=== PATIENT | female | born 1950 | race Caucasian/White ===

== ENCOUNTER 2017-04-09 06:09 | Inpatient (IN) | payer MEDICARE, OTHER ==
[~2017-04-09] VITALS: Ht 157.5 cm; Wt 61.7 kg
[2017-04-09 07:14] LABS: HEMOGLOBIN 13.3 gm/dl (12.3-15.3); RED BLOOD COUNT 4.28 M/UL (4.00-5.10); WHITE BLOOD COUNT 14.9 K/UL (4.5-11.0)
[2017-04-09] MEDS ORDERED: ZOCOR20 MG PO (12:31)
[2017-04-09] MEDS ORDERED: ZANAFLEX 4 MG TA4 MG PO (12:31)
[2017-04-09] MEDS ORDERED: PROZAC 20 MG CA20 MG PO (12:33)
[2017-04-09] MEDS ORDERED: KLONOPIN1 MG PO (12:33)
[2017-04-09] MEDS ORDERED: NEURONTIN 300300 MG PO (12:34)
[2017-04-09] MEDS ORDERED: NEURONTIN 400400 MG PO (12:34)
[2017-04-09] MEDS ORDERED: LORTAB 5-325 M1 EACH PO (12:35)
[2017-04-09] MEDS ORDERED: SYNTHROID75 MCG PO (12:36)
[2017-04-09] MEDS ORDERED: ZESTRIL10 MG PO (12:52)
[2017-04-09] MEDS ORDERED: LOPRESSOR50 MG PO (12:52)
[2017-04-09] MEDS ORDERED: OMEPRAZOLE20 M1 PO (12:55)
[2017-04-09] MEDS ORDERED: NYSTATIN15 GM TOP (12:57)
[2017-04-09 13:35] LABS: RED BLOOD COUNT 4.21 M/UL (4.00-5.10); WHITE BLOOD COUNT 17.4 K/UL (4.5-11.0)
[2017-04-09 21:45] LABS: HEMOGLOBIN 12.4 gm/dl (12.3-15.3)
[2017-04-10 05:16] LABS: HEMOGLOBIN 11.6 gm/dl (12.3-15.3); WHITE BLOOD COUNT 13.3 K/UL (4.5-11.0)
[2017-04-10 05:21] LABS: RED BLOOD COUNT 3.77 M/UL (4.00-5.10)
[2017-04-10 14:02] LABS: HEMOGLOBIN 11.6 gm/dl (12.3-15.3)
[2017-04-10 21:25] LABS: HEMOGLOBIN 10.6 gm/dl (12.3-15.3)
[2017-04-11 05:20] LABS: HEMOGLOBIN 10.1 gm/dl (12.3-15.3)
[2017-04-11 05:21] LABS: RED BLOOD COUNT 3.29 M/UL (4.00-5.10); WHITE BLOOD COUNT 9.8 K/UL (4.5-11.0)
[2017-04-11 05:40] LABS: BUN/CREATININE RATIO 14 (0-10)
[2017-04-12 04:25] LABS: HEMOGLOBIN 9.2 gm/dl (12.3-15.3); RED BLOOD COUNT 2.99 M/UL (4.00-5.10); WHITE BLOOD COUNT 7.7 K/UL (4.5-11.0)
[2017-04-12 04:58] LABS: BUN/CREATININE RATIO 16 (0-10)
[2017-04-13 05:36] LABS: WHITE BLOOD COUNT 8.5 K/UL (4.5-11.0)
[2017-04-13 05:37] LABS: RED BLOOD COUNT 3.29 M/UL (4.00-5.10)
[2017-04-14 05:02] LABS: HEMOGLOBIN 9.8 gm/dl (12.3-15.3); RED BLOOD COUNT 3.23 M/UL (4.00-5.10); WHITE BLOOD COUNT 7.4 K/UL (4.5-11.0)
[2017-04-14] MEDS ORDERED: TYLENOL325 MG PO (12:29)
[2017-04-14] MEDS ORDERED: FLAGYL500 MG PO (12:30)
[2017-05-20] MEDS ORDERED: OMEPRAZOLE20 M1 PO (10:02)
[2017-05-20] MEDS ORDERED: CLONAZEPAM1 MG PO (10:03)
[2017-05-20] MEDS ORDERED: NEURONTIN 400400 MG PO (10:03)
[2017-05-20] MEDS ORDERED: NYSTATIN100000 UNI PO (10:04)
[2017-05-20] MEDS ORDERED: METOPROLOL TART50 MG PO (10:04)
[2017-05-20] MEDS ORDERED: LISINOPRIL10 MG PO (10:04)
[2017-05-20] MEDS ORDERED: LEVOTHYROXINE75 MCG PO (10:05)
[2017-05-20] MEDS ORDERED: SIMVASTATIN20 MG PO (10:05)
[2017-05-20] MEDS ORDERED: TIZANIDINE HCL4 MG PO (10:06)
[2017-05-20] MEDS ORDERED: FLUOXETINE HCL60 MG PO (10:07)
[2017-05-20] MEDS ORDERED: SUMATRIPTAN SU100 MG PO (10:07)
[2017-05-20] MEDS ORDERED: NEURONTIN 300300 MG PO (10:08)
[2017-05-20] MEDS ORDERED: NORCO 10-325 T1 EACH PO (10:08)
[2017-05-20] MEDS ORDERED: NYSTATIN15 GM TP (10:09)
== END 2017-04-14 14:44 | disposition home or self-care (01) | DRG 391 ==
LOC: ER1 06:09 → M/S 09:46 → ZEROF 09:46 → PROG CARE 09:46 → M/S 04-10 15:10
PROVIDERS: Emergency Medicine; Internal Medicine; ADMIT Family Medicine
DX: A09 Infectious gastroenteritis and colitis, unspecified (principal); K55.059 Acute (reversible) ischemia of intestine, part and extent unspecified; N17.9 Acute kidney failure, unspecified; J98.11 Atelectasis; B96.20 Unspecified Escherichia coli [E. coli] as the cause of diseases classified elsewhere; M19.90 Unspecified osteoarthritis, unspecified site; I34.1 Nonrheumatic mitral (valve) prolapse; Z86.73 Personal history of transient ischemic attack (TIA), and cerebral infarction without residual deficits; F32.9 Major depressive disorder, single episode, unspecified; M51.36 Other intervertebral disc degeneration, lumbar region; G89.29 Other chronic pain; E03.9 Hypothyroidism, unspecified; I10 Essential (primary) hypertension; K21.9 Gastro-esophageal reflux disease without esophagitis; M81.0 Age-related osteoporosis without current pathological fracture; G43.909 Migraine, unspecified, not intractable, without status migrainosus; F41.9 Anxiety disorder, unspecified; Z90.710 Acquired absence of both cervix and uterus; Z98.890 Other specified postprocedural states; F17.210 Nicotine dependence, cigarettes, uncomplicated; Z82.49 Family history of ischemic heart disease and other diseases of the circulatory system; Z83.49 Family history of other endocrine, nutritional and metabolic diseases; Z79.899 Other long term (current) drug therapy; Z79.82 Long term (current) use of aspirin; R10.9 Unspecified abdominal pain; D72.829 Elevated white blood cell count, unspecified
CPT/HCPCS: 36415; 70450; 71010; 72070; 72100; 72125; 80048; 80053; 82550; 82553; 83605; 83690; 83874; 84484; 85014; 85018; 85025; 85027; 85610; 85730; 86850; 86900; 86901; 87040; 87045; 87046; 89055; 93005; 94640; 94664; 96361; 96365; 96375; 96376; 97116; 99285; C9113; J1335; J1885; J2270; J2405; J7030; J7050; Q9965

== ENCOUNTER → 2017-05-20 | Day surgery (SDC) | payer MEDICARE, OTHER ==
[~2017-05-20] VITALS: Ht 157.5 cm; Wt 61.7 kg
[~2017-05-20] MED LIST: CLONAZEPAM1 MG PO; FLAGYL500 MG PO; FLUOXETINE HCL60 MG PO; KLONOPIN1 MG PO; LEVOTHYROXINE75 MCG PO; LISINOPRIL10 MG PO; LOPRESSOR50 MG PO; LORTAB 5-325 M1 EACH PO; METOPROLOL TART50 MG PO; NEURONTIN 300300 MG PO; NEURONTIN 400400 MG PO; NORCO 10-325 T1 EACH PO; NYSTATIN100000 UNI PO; NYSTATIN15 GM TOP; NYSTATIN15 GM TP; OMEPRAZOLE20 M1 PO; PROZAC 20 MG CA20 MG PO; SIMVASTATIN20 MG PO; SUMATRIPTAN SU100 MG PO; SYNTHROID75 MCG PO; TIZANIDINE HCL4 MG PO; TYLENOL325 MG PO; ZANAFLEX 4 MG TA4 MG PO; ZESTRIL10 MG PO; ZOCOR20 MG PO
== END | disposition home or self-care (01) ==
LOC: OR 08:01
PROVIDERS: Internal Medicine Gastroenterology
PROC: 0DBE8ZX Excision of Large Intestine, Via Natural or Artificial Opening Endoscopic, Diagnostic (ICD-10-PCS; principal; 2017-05-20 12:30)
DX: Z12.11 Encounter for screening for malignant neoplasm of colon (principal); K57.30 Diverticulosis of large intestine without perforation or abscess without bleeding; K64.0 First degree hemorrhoids; I10 Essential (primary) hypertension; E89.0 Postprocedural hypothyroidism; E66.3 Overweight; M19.90 Unspecified osteoarthritis, unspecified site; G89.29 Other chronic pain; F17.210 Nicotine dependence, cigarettes, uncomplicated; Z87.19 Personal history of other diseases of the digestive system; Z88.2 Allergy status to sulfonamides; Z79.891 Long term (current) use of opiate analgesic; Z79.899 Other long term (current) drug therapy; Z90.49 Acquired absence of other specified parts of digestive tract; Z90.710 Acquired absence of both cervix and uterus
CPT/HCPCS: J7030

== ENCOUNTER 2022-02-26 12:50 | Emergency (ER) | payer MEDICARE, OTHER ==
[2022-02-26 13:34] LABS: HEMOGLOBIN 9.6 gm/dl (12.3-15.3); RED BLOOD COUNT 3.28 M/UL (4.00-5.10); WHITE BLOOD COUNT 10.9 K/UL (4.5-11.0)
[2022-02-26 14:29] LABS: BUN/CREATININE RATIO 18 (0-10)
[2022-02-26 19:18] LABS: HEMOGLOBIN 10.2 gm/dl (12.3-15.3)
[2022-02-26 23:27] LABS: HEMOGLOBIN 8.3 gm/dl (12.3-15.3)
== END 2022-02-26 23:30 | disposition short-term general hospital (02) ==
LOC: ER1 12:50
PROVIDERS: Emergency Medicine
DX: S09.90XA Unspecified injury of head, initial encounter (principal); S20.224A Contusion of middle back wall of thorax, initial encounter; S10.93XA Contusion of unspecified part of neck, initial encounter; Z20.822 Contact with and (suspected) exposure to COVID-19; D64.9 Anemia, unspecified; K92.2 Gastrointestinal hemorrhage, unspecified; I10 Essential (primary) hypertension; E78.5 Hyperlipidemia, unspecified; W20.8XXA Other cause of strike by thrown, projected or falling object, initial encounter
CPT/HCPCS: 70450; 71045; 72125; 72128; 72131; 80053; 81001; 82272; 82550; 82553; 83605; 84484; 85014; 85018; 85025; 85610; 85730; 86850; 86900; 86901; 93005; 96374; 96375; 99285; C9113; J2354; U0002

== ENCOUNTER 2022-03-11 21:29 | Inpatient (IN) | payer MEDICARE, OTHER ==
[~2022-03-11] VITALS: Ht 157.5 cm; Wt 45.4 kg
[~2022-03-11 21:29] MED LIST changes: +GABAPENTIN400 MG PO; -LEVOTHYROXINE75 MCG PO; -SIMVASTATIN20 MG PO; -TIZANIDINE HCL4 MG PO
[2022-03-11 22:16] LABS: HEMOGLOBIN 10.2 gm/dl (12.3-15.3); RED BLOOD COUNT 3.48 M/UL (4.00-5.10)
[2022-03-12] MEDS ORDERED: LEVOTHYROXINE75 MC1 PO (02:36)
[2022-03-12] MEDS ORDERED: PROZAC 20 MG CA20 MG PO (02:36)
[2022-03-12] MEDS ORDERED: DOXYCYCLINE MO100 MG PO (02:37)
[2022-03-12] MEDS ORDERED: OMNICEF 300 MG300 MG PO (02:37)
[2022-03-12] MEDS ORDERED: ZOCOR20 MG PO (02:37)
[2022-03-12] MEDS ORDERED: ALBUTEROL1.25 MG/3 INH (02:38)
[2022-03-12] MEDS ORDERED: ATROVENT HFA12.9 GM INH (02:39)
[2022-03-12] MEDS ORDERED: LIPITOR20 MG PO (02:40)
[2022-03-12] MEDS ORDERED: TOPROL XL 25 MG25 MG PO (02:40)
[2022-03-12] MEDS ORDERED: BUMETANIDE0.5 MG PO (02:41)
[2022-03-12] MEDS ORDERED: ASPIRIN EC81 MG PO (02:41)
[2022-03-12] MEDS ORDERED: CHRONULAC20 GM/30 M PO (02:42)
[2022-03-12] MEDS ORDERED: ZOFRAN ODT 4 MG4 MG PO (02:43)
[2022-03-12] MEDS ORDERED: 8 HOUR PAIN RE650 MG PO (02:44)
[2022-03-12] MEDS ORDERED: LISINOPRIL2.5 MG PO (02:44)
[2022-03-12] MEDS ORDERED: XIFAXAN 550 MG550 MG PO (02:44)
[2022-03-12] MEDS ORDERED: MECLIZINE HCL25 MG PO (02:45)
[2022-03-12] MEDS ORDERED: PROTONIX20 MG PO (10:02)
[2022-03-12] MEDS ORDERED: SIMVASTATIN20 MG PO (10:05)
[2022-03-12] MEDS ORDERED: LEVOTHYROXINE75 MCG PO (10:05)
[2022-03-12] MEDS ORDERED: PROAIR HFA8.5 GM INH (19:03)
[2022-03-12] MEDS ORDERED: IPRATROPIU0.2 MG/1 M INH (19:06)
[2022-03-12] MEDS ORDERED: TIZANIDINE HCL4 MG PO (19:24)
[2022-03-13 01:21] LABS: ESCHERICHIA COLI Not Detected (Negative); KLEBSIELLA OXYTOCA Not Detected (Negative); KLEBSIELLA PNEUMONIAE Not Detected (Negative); KPC-CARBAPENEM-RESISTANCE GENE Not Detected (Negative); STAPHYLOCOCCUS AUREUS Not Detected (Negative); STREP AGALACTIAE (GROUP B) Not Detected (Negative); STREP PYOGENES (GROUP A) Not Detected (Negative); STREPTOCOCCUS Not Detected (Negative); vanA/B (VANCOMYCIN RESIST GENE Not Detected (Negative)
[2022-03-13 01:22] LABS: CANDIDA ALBICANS Not Detected (Negative); CANDIDA KRUSEI Not Detected (Negative); CANDIDA TROPICALIS Not Detected (Negative); HAEMOPHILUS INFLUENZAE Not Detected (Negative); PROTEUS Not Detected (Negative); PSEUDOMONAS AERUGINOSA Not Detected (Negative); SERRATIA MARCESANS Not Detected (Negative)
[2022-03-13 02:48] LABS: STAPHYLOCOCCUS DETECTED (Negative)
[2022-03-13 06:19] LABS: HEMOGLOBIN 9.3 gm/dl (12.3-15.3); RED BLOOD COUNT 3.3 M/UL (4.00-5.10)
[2022-03-13 06:20] LABS: WHITE BLOOD COUNT 22.7 K/UL (4.5-11.0)
[2022-03-13 10:16] LABS: HBSAG SCREEN Negative (Negative); HEP A AB, IGM Negative (Negative); HEP B CORE AB, IGM Negative (Negative); HEP C VIRUS AB 0.2 (0.0-0.9)
[2022-03-14 04:05] LABS: HEMOGLOBIN 9.2 gm/dl (12.3-15.3); RED BLOOD COUNT 3.15 M/UL (4.00-5.10); WHITE BLOOD COUNT 19.6 K/UL (4.5-11.0)
[2022-03-15 08:50] LABS: HEMOGLOBIN 7.7 gm/dl (12.3-15.3)
--- NOTE | 2022-03-15 09:01 | NUR ---
03/15/22 0900 5 RINGS REMOVED FROM PATIENTS HANDS AND GIVEN TO SISTER
[2022-03-15 09:09] LABS: RED BLOOD COUNT 2.62 M/UL (4.00-5.10); WHITE BLOOD COUNT 11.4 K/UL (4.5-11.0)
[2022-03-16 05:13] LABS: HEMOGLOBIN 7.1 gm/dl (12.3-15.3); RED BLOOD COUNT 2.42 M/UL (4.00-5.10)
[2022-03-17 05:44] LABS: RED BLOOD COUNT 2.21 M/UL (4.00-5.10); WHITE BLOOD COUNT 12.2 K/UL (4.5-11.0)
[2022-03-17 05:47] LABS: HEMOGLOBIN 6.5 gm/dl (12.3-15.3)
[2022-03-17 16:12] LABS: ORGANISM ID Not indicated. (.); SPECIMEN SOURCE Urine (.); STREPTOCOCCUS PNEUMONIAE AG Negative (Negative)
[2022-03-18 05:46] LABS: WHITE BLOOD COUNT 12.4 K/UL (4.5-11.0)
[2022-03-18 05:51] LABS: RED BLOOD COUNT 2.69 M/UL (4.00-5.10)
[2022-03-19 05:42] LABS: HEMOGLOBIN 7.1 gm/dl (12.3-15.3); WHITE BLOOD COUNT 14.9 K/UL (4.5-11.0)
[2022-03-19 05:49] LABS: RED BLOOD COUNT 2.38 M/UL (4.00-5.10)
[2022-03-20 13:25] LABS: WHITE BLOOD COUNT 16.3 K/UL (4.5-11.0)
[2022-03-20 13:26] LABS: RED BLOOD COUNT 1.92 M/UL (4.00-5.10)
[2022-03-20 13:27] LABS: HEMOGLOBIN 5.7 gm/dl (12.3-15.3)
--- NOTE | 2022-03-20 13:42 | NUR ---
Patient has a hemoglobin of 5.7. RN spoke to patient's sister about doing a blood transfusion at this time. The sister declined due to patient's poor prognosis and the fact that the patient is being made comfort care once other family arrives. Dr. Ramos made aware of the situation and agrees with the decision.
[2022-03-21 04:51] LABS: RED BLOOD COUNT 1.84 M/UL (4.00-5.10)
[2022-03-21 04:52] LABS: WHITE BLOOD COUNT 22.2 K/UL (4.5-11.0)
[2022-03-21 04:53] LABS: HEMOGLOBIN 5.5 gm/dl (12.3-15.3)
--- NOTE | 2022-03-21 09:18 | NUR ---
Dr. EATON at bedside, patient being made comfort care
== END 2022-03-21 10:00 | disposition expired | DRG 870 ==
LOC: ER1 21:29 → CCU 03-12 00:09 → CDU 03-12 00:09 → CCU 03-12 02:15
PROVIDERS: Emergency Medicine; Internal Medicine; Internal Medicine Critical Care Medicine; Internal Medicine Infectious Disease; Internal Medicine Nephrology; ADMIT Family Medicine
PROC: 5A0935A Assistance with Respiratory Ventilation, Less than 24 Consecutive Hours, High Flow/Velocity Cannula (ICD-10-PCS; principal; 2022-03-12)
PROC: 3E03329 Introduction of Other Anti-infective into Peripheral Vein, Percutaneous Approach (ICD-10-PCS; 2022-03-12)
PROC: 3E043XZ Introduction of Vasopressor into Central Vein, Percutaneous Approach (ICD-10-PCS; 2022-03-12)
PROC: B24BZZZ Ultrasonography of Heart with Aorta (ICD-10-PCS; 2022-03-12)
PROC: 5A1955Z Respiratory Ventilation, Greater than 96 Consecutive Hours (ICD-10-PCS; 2022-03-13)
PROC: 5A09357 Assistance with Respiratory Ventilation, Less than 24 Consecutive Hours, Continuous Positive Airway Pressure (ICD-10-PCS; 2022-03-13)
PROC: 0BH17EZ Insertion of Endotracheal Airway into Trachea, Via Natural or Artificial Opening (ICD-10-PCS; 2022-03-13)
PROC: 03HY32Z Insertion of Monitoring Device into Upper Artery, Percutaneous Approach (ICD-10-PCS; 2022-03-13)
PROC: 4A133B1 Monitoring of Arterial Pressure, Peripheral, Percutaneous Approach (ICD-10-PCS; 2022-03-13)
PROC: 4A133J1 Monitoring of Arterial Pulse, Peripheral, Percutaneous Approach (ICD-10-PCS; 2022-03-13)
PROC: B34HZZZ Ultrasonography of Right Upper Extremity Arteries (ICD-10-PCS; 2022-03-13)
PROC: 02HV33Z Insertion of Infusion Device into Superior Vena Cava, Percutaneous Approach (ICD-10-PCS; 2022-03-13)
PROC: 30233N1 Transfusion of Nonautologous Red Blood Cells into Peripheral Vein, Percutaneous Approach (ICD-10-PCS; 2022-03-17)
DX: A41.9 Sepsis, unspecified organism (principal); R65.21 Severe sepsis with septic shock; J80 Acute respiratory distress syndrome; I81 Portal vein thrombosis; J18.9 Pneumonia, unspecified organism; I21.A1 Myocardial infarction type 2; G93.41 Metabolic encephalopathy; N17.0 Acute kidney failure with tubular necrosis; D68.9 Coagulation defect, unspecified; J44.0 Chronic obstructive pulmonary disease with (acute) lower respiratory infection; E87.0 Hyperosmolality and hypernatremia; R18.8 Other ascites; D61.818 Other pancytopenia; Z20.822 Contact with and (suspected) exposure to COVID-19; I48.0 Paroxysmal atrial fibrillation; K74.60 Unspecified cirrhosis of liver; Z66 Do not resuscitate; E78.5 Hyperlipidemia, unspecified; I10 Essential (primary) hypertension; E87.5 Hyperkalemia; F17.210 Nicotine dependence, cigarettes, uncomplicated; E80.6 Other disorders of bilirubin metabolism; E87.6 Hypokalemia; E03.9 Hypothyroidism, unspecified; G89.29 Other chronic pain; K75.81 Nonalcoholic steatohepatitis (NASH); N18.30 Chronic kidney disease, stage 3 unspecified; R94.31 Abnormal electrocardiogram [ECG] [EKG]; K21.9 Gastro-esophageal reflux disease without esophagitis; E66.9 Obesity, unspecified; L89.322 Pressure ulcer of left buttock, stage 2; L89.312 Pressure ulcer of right buttock, stage 2; L89.152 Pressure ulcer of sacral region, stage 2; Z51.5 Encounter for palliative care; Z82.49 Family history of ischemic heart disease and other diseases of the circulatory system; Z88.2 Allergy status to sulfonamides; Z88.8 Allergy status to other drugs, medicaments and biological substances; Z86.16 Personal history of COVID-19; Z79.82 Long term (current) use of aspirin; Z79.899 Other long term (current) drug therapy; Z68.22 Body mass index [BMI] 22.0-22.9, adult
CPT/HCPCS: ECHO; 0240U; 31500; 36415; 36430; 36600; 70450; 71045; 76700; 76705; 80048; 80053; 80074; 80202; 80307; 81001; 82140; 82533; 82550; 82553; 82570; 82803; 83036; 83605; 83690; 83735; 83880; 84100; 84132; 84133; 84156; 84300; 84439; 84443; 84484; 85014; 85018; 85025; 85027; 85379; 85384; 85610; 85730; 86140; 86850; 86900; 86901; 86920; 87040; 87070; 87077; 87081; 87150; 87186; 87205; 87278; 87899; 89050; 93005; 93306; 94002; 94003; 94640; 94760; 96365; 96366; 96367; 96375; 97161; 97166; 99285; A6212; C9113; G0480; J0133; J0330; J0692; J1720; J1940; J2060; J2185; J2248; J2250; J2270; J2704; J3370; J3475; J3480; J7030; J7040; J7050; J7070; P9016; P9047